=== PATIENT | female | born 1955 | race Native Hawaiian/Other Pacific Islander ===

== ENCOUNTER 2017-08-27 12:14 | Outpatient (CLI) | payer BC ==
--- NOTE | 2017-08-27 13:50 | Mammography Report ---
BILATERAL DIGITAL SCREENING MAMMOGRAM with CAD: 08/27/17 12:14:00 CLINICAL: Routine screening. COMPARISON: 08/29/16, 08/23/15 and 08/17/14 FINDINGS: The breasts are mostly fatty with a few bilateral scattered areas of fibroglandular density.No mass, architectural distortion or suspicious calcifications. IMPRESSION: No mammographic evidence of malignancy. BI-RADS CATEGORY: 1 -- Negative RECOMMENDATION: Routine mammographic screening in one year. COMMENT: Patient follow-up letters are generated by our [email or web address] application.
== END 2017-08-27 12:15 | disposition home or self-care (01) ==
LOC: SPVWC 12:14
PROVIDERS: ATTEND Obstetrics & Gynecology
DX: Z12.31 Encounter for screening mammogram for malignant neoplasm of breast (principal)
CPT/HCPCS: 77067; G0202

== ENCOUNTER 2019-02-28 08:13 | Outpatient (CLI) | payer BC ==
--- NOTE | 2019-02-28 11:32 | Mammography Report ---
BONE DEXA:02/28/19 CLINICAL: Postmenopausal COMPARISON: [facility] 09/03/17 lumbar spine and right hip TECHNIQUE: Two site bone DEXA performed on an Hologic scanner. FINDINGS: L1 BMD is 0.745 g/cm squared with T score of -2.2 and Z score of -0.6 . L2 BMD is 0.749 g/cm squared with T score of -2.5 and Z score of -0.7 . L3 BMD is 0.683 g/cm squared with T score of -3.6 and Z score of -1.7 . L4 BMD is 0.760 g/cm squared with T score of -2.7 and Z score of -0.8 . The average BMD of the lumbar spine L1-L4 is 0.734 g/cm squared with T-score of -2.8 and Z-score of -1.0 . Individual and average T scores have declined compared to the previous exam. The average BMD of the left hip is 0.885 g/cm squared with a T-score of -0.6 and a Z-score of +0.6 . IMPRESSION: 1. WHO classification: Osteoporosis with high fracture risk based on lumbar spine measurements. A decline in T scores compared to the previous exam. 2. WHO classification: Normal with average fracture risk based on left hip measurements. RECOMMENDATION: Clinical correlation and routine screening. DEFINITIONS: BMD = Bone Mineral Density T-score = BMD related to mean peak bone mass of young adult (mean expressed in Standard Deviation) Z-score = Age matched BMD expressed in SD World Health Organization (WHO) Diagnostic Criteria Normal T-score > -1 SD Osteopenia T-score between -1 and -2.4 SD Osteoporosis T-score -2.5 SD or below NOTE: BMD is not the only risk factor for fracture. One should also consider factors such as the patient's age, risk of falling, previous osteoporotic fracture, family history of osteoporotic fractures, current smoker, and low body weight. Z-scores are not calculated if >80 years of age.
--- NOTE | 2019-02-28 11:34 | Mammography Report ---
BILATERAL DIGITAL SCREENING MAMMOGRAM with CAD: 02/28/19 08:13:00 CLINICAL: Routine screening. COMPARISON:08/27/17 FINDINGS: There are bilateral scattered fibroglandular densities. No mass, architectural distortion or suspicious calcifications. IMPRESSION: No mammographic evidence of malignancy. BI-RADS CATEGORY: 1 - - Negative RECOMMENDATION: Routine mammographic screening in one year. COMMENT: Patient follow-up letters are generated by our [employer] application.
== END 2019-02-28 08:14 | disposition home or self-care (01) ==
LOC: SPVWC 08:13
PROVIDERS: ATTEND Obstetrics & Gynecology
DX: Z12.31 Encounter for screening mammogram for malignant neoplasm of breast (principal); Z13.820 Encounter for screening for osteoporosis; M85.88 Other specified disorders of bone density and structure, other site; M81.0 Age-related osteoporosis without current pathological fracture; Z78.0 Asymptomatic menopausal state
CPT/HCPCS: 77067; 77080

== ENCOUNTER 2022-03-18 14:57 | Outpatient (CLI) | payer BC ==
--- NOTE | 2022-03-19 09:17 | Mammography Report ---
DIGITAL SCREENING MAMMOGRAM WITH CAD, 03/18/2022 CLINICAL INFORMATION / INDICATION: Routine screening mammography. SCREENING MAMMO Z12.31 TECHNIQUE: Digital bilateral 2D mammography was obtained in the craniocaudal and mediolateral obliqu e projections. This examination was interpreted with the benefit of Computer-Aided Detection analysis . COMPARISON: 02/28/2019 FINDINGS: Breast Density: There are scattered areas of fibroglandular density. No dominant mass, suspicious calcifications, or architectural distortion in either breast. IMPRESSION: No mammographic evidence of malignancy. Follow up recommendation: Routine yearly BI-RADS Category 1: NEGATIVE A "normal" or negative report should not discourage follow up or biopsy of a clinically significant f inding. A written summary of these findings will be mailed to the patient. The patient will be entered into a mammography reporting system which will generate a reminder letter for the patient's next appointmen t at the appropriate interval. The [employer] recommends yearly mammograms starting at age 40 and continuing as l sofia as a woman is in good health. Breast MRI is recommended for women with an approximate 20-25% or greater lifetime risk of breast cancer, including women with a strong family history of breast or ova rafael cancer or who have been treated for Hodgkin's disease. Signer Name: Cheikh Dee DO Signed: 03/19/2022 9:12 AM Workstation Name: the [email or web address]
== END 2022-03-18 14:58 | disposition home or self-care (01) ==
LOC: SPVWC 14:57
PROVIDERS: ATTEND Obstetrics & Gynecology
DX: Z12.31 Encounter for screening mammogram for malignant neoplasm of breast (principal); N64.89 Other specified disorders of breast
CPT/HCPCS: 77067